=== PATIENT | female | born 1955 | race Caucasian/White ===

== ENCOUNTER 2019-10-18 09:37 | Emergency (ER) | payer MEDICARE ==
[2019-10-18] MEDS ORDERED: BABY ASPIRIN 81 MG CHEW PO ONE (09:53)
[2019-10-18] MEDS ORDERED: PROVENTIL 2.5 MG/3 ML NEB IH ONE ×2 (09:54→10:10)
[2019-10-18] MEDS ORDERED: solu-MEDROL 125 MG IV ONE (09:54)
[2019-10-18] MEDS ORDERED: solu-MEDROL 125 MG ONE (10:03)
[2019-10-18] MEDS ORDERED: BABY ASPIRIN 81 MG CHEW ONE (10:03)
--- NOTE | 2019-10-18 10:11 | ERPHSYRPT ---
- History of Present Illness Time Seen by Provider: 10/18/19 09:43 Source: patient Exam Limitations: no limitations Patient Subjective Stated Complaint: PT STATES SHE HAS BEEN SOB AND A COUGH SINCE , SHE WAS SEEN AND STARTED ON [place] ON 10/14/19 AND STATES SHE IS GETTING BETTER, NO FEVER Triage Nursing Assessment: PT ALERT, WALKED IN, RESP EASY, HAS COUGH, SKIN W/D/P , DIMINISHED BREATH SOUNDS,SHE HAS NEB TX LAST AT 0600, HAS CONGESTED SOUNDING COUGH Physician History: Cough, SOB, URI like symptoms x 2 weeks. Patient continues to smoke. No chest pain. She was given steroids and albuterol by PCP. Timing/Duration: week(s) Cough Quality/Degree: mild, dry cough Possible Cause: frequent episodes Modifying Factors: Improves With: albuterol inhaler, coughing Associated Symptoms: fever, chills, No chest pain/soreness International travel in last 2 weeks: No Allergies/Adverse Reactions: amoxicillin [From Augmentin] Adverse Reaction (Verified 10/18/19 09:42) clavulanic acid [From Augmentin] Adverse Reaction (Verified 10/18/19 09:42) doxycycline Adverse Reaction (Verified 10/18/19 09:42) Hx Influenza Vaccination/Date Given: Yes Hx Pneumococcal Vaccination/Date Given: Yes Immunizations Up to Date: Yes - Review of Systems Constitutional: No Fever, No Chills Eyes: No Symptoms Ears, Nose, & Throat: No Symptoms, Nose Congestion Respiratory: Cough, Wheezing, No Dyspnea Cardiac: No Chest Pain, No Edema, No Syncope Abdominal/Gastrointestinal: No Abdominal Pain, No Nausea, No Vomiting, No Diarrhea Genitourinary Symptoms: No Dysuria Musculoskeletal: No Back Pain, No Neck Pain Skin: No Rash Neurological: No Dizziness, No Focal Weakness, No Sensory Changes Psychological: No Symptoms Endocrine: No Symptoms All Other Systems: Reviewed and Negative - Past Medical History Pertinent Past Medical History: Yes Cardiac History: High Cholesterol, Hypertension Respiratory History: Bronchitis, COPD 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 - Past Surgical History Past Surgical History: Yes Gastrointestinal: Cholecystectomy Female Surgical History: Hysterectomy Other Surgical History: STENTS - Social History Smoking Status: Current some day smoker Exposure to second hand smoke: Yes Drug Use: none Patient Lives Alone: No - Female History Hx Last Menstrual Period: POST Hx Now: No - Nursing Vital Signs Nursing Vital Signs: Initial Vital Signs Respiratory Rate 20 01/11/20 09:42 O2 Sat by Pulse Oximetry 95 10/18/19 09:42 Pain Scale Pain Intensity 0 - Physical Exam General Appearance: no apparent distress, alert Eye Exam: PERRL/EOMI, eyes nml inspection Ears, Nose, Throat Exam: normal ENT inspection, TMs normal, pharynx normal, moist mucous membranes Neck Exam: normal inspection, non-tender, supple, full range of motion Respiratory Exam: normal breath sounds, wheezing (wheezing throughout), No lungs clear, No respiratory distress Cardiovascular Exam: regular rate/rhythm, normal heart sounds Gastrointestinal/Abdomen Exam: soft, No tenderness Back Exam: normal inspection, No CVA tenderness, No vertebral tenderness Extremity Exam: normal inspection, normal range of motion Neurologic Exam: alert, oriented x 3, cooperative, normal mood/affect, sensation nml, No motor deficits Skin Exam: normal color, warm, dry, No rash Lymphatic Exam: No adenopathy SpO2: 94 Ordered Tests: Active Orders 24 hr Category Date Time Status EKG-ER Only STAT Care 10/18/19 09:53 Active IV Insertion STAT Care 10/18/19 09:53 Active CHEST 2 VIEWS (PA AND LAT) Stat Exams 10/18/19 09:54 Taken CBC W DIFF Stat Lab 10/18/19 10:00 Completed CMP Stat Lab 10/18/19 10:00 Completed LIPASE Stat Lab 10/18/19 10:00 Completed NT PRO BNP Stat Lab 10/18/19 10:00 Completed TROPONIN Q3H Lab 10/18/19 10:00 Completed TROPONIN Q3H Lab 10/18/19 13:00 Ordered TROPONIN Q3H Lab 10/18/19 16:00 Ordered TROPONIN Q3H Lab 10/18/19 19:00 Ordered TROPONIN Q3H Lab 10/18/19 22:00 Ordered Peak Expiratory Flow Rate ONCE RT 10/18/19 10:16 Active Respiratory Therapy Assessment DAILY RT 10/18/19 10:16 Active Medication Summary Discontinued Medications Generic Name Dose Route Start Last Admin Trade Name Freq PRN Reason Stop Dose Admin Albuterol Sulfate 2.5 mg 10/18/19 09:54 10/18/19 10:14 Proventil 2.5 Mg/3 Ml Neb IH 10/18/19 09:55 2.5 mg STAT ONE Administration Albuterol Sulfate Confirm 10/18/19 10:10 Proventil 2.5 Mg/3 Ml Neb Administered 10/18/19 10:11 Dose 2.5 mg IH .STK-MED ONE Aspirin 324 mg 10/18/19 09:53 10/18/19 10:04 Baby Aspirin 81 Mg Chew PO 10/18/19 09:54 324 mg STAT ONE Administration Aspirin Confirm 10/18/19 10:03 Baby Aspirin 81 Mg Chew Administered 10/18/19 10:04 Dose 324 mg .ROUTE .STK-MED ONE Methylprednisolone Sodium Succinate 125 mg 10/18/19 09:54 10/18/19 10:04 Solu-Medrol 125 Mg IV 10/18/19 09:55 125 mg STAT ONE Administration Methylprednisolone Sodium Succinate Confirm 10/18/19 10:03 Solu-Medrol 125 Mg Administered 10/18/19 10:04 Dose 125 mg .ROUTE .STK-MED ONE Lab/Rad Data: Laboratory Result Diagrams 10/18/19 10:00 10/18/19 10:00 Laboratory Results 10/18/19 10/18/19 10/18/19 Range/Units 10:00 10:00 10:00 WBC (4.0-10.5) K/mm3 RBC (4.1-5.4) M/mm3 Hgb (12.0-16.0) gm/dl Hct (35-47) % MCV (78-100) fl MCH (26-32) pg MCHC (32-36) g/dl RDW (11.5-14.0) % Plt Count (150-450) K/mm3 MPV (7.5-11.0) fl Gran % (36.0-66.0) % Eos # (Auto) (0-0.5) Absolute Lymphs (auto) (1.0-4.6) Absolute Monos (auto) (0.0-1.3) Lymphocytes % (24.0-44.0) % Monocytes % (0.0-12.0) % Eosinophils % (0.00-5.0) % Basophils % (0.0-0.4) % Absolute Granulocytes (1.4-6.9) Basophils # (0-0.4) Sodium 138 (137-145) mmol/L Potassium 3.7 (3.5-5.1) mmol/L Chloride 105 (98-107) mmol/L Carbon Dioxide 27 (22-30) mmol/L Anion Gap 10.6 (5-15) MEQ/L BUN 12 (7-17) mg/dL Creatinine 0.57 (0.52-1.04) mg/dL Estimated GFR > 60.0 ML/MIN Glucose 120 H (74-106) mg/dL Calcium 9.6 (8.4-10.2) mg/dL Total Bilirubin 0.50 (0.2-1.3) mg/dL AST 37 H (14-36) U/L ALT 31 (0-35) U/L Alkaline Phosphatase 99 (38-126) U/L Troponin I < 0.012 (0.000-0.034) ng/mL NT-Pro-B Natriuret Pep 183 (0-900) pg/mL Serum Total Protein 7.7 (6.3-8.2) g/dL Albumin 4.1 (3.5-5.0) g/dL Lipase 35 (23-300) U/L Influenza Type A Ag NEGATIVE (NEGATIVE) Influenza Type B Ag NEGATIVE (NEGATIVE) RSV (PCR) NEGATIVE (Negative) Slides for Path Review 10/18/19 Range/Units 10:00 WBC 9.3 (4.0-10.5) K/mm3 RBC 4.00 L (4.1-5.4) M/mm3 Hgb 14.6 (12.0-16.0) gm/dl Hct 42.2 (35-47) % MCV 105.5 H (78-100) fl MCH 36.5 H (26-32) pg MCHC 34.6 (32-36) g/dl RDW 13.8 (11.5-14.0) % Plt Count 249 (150-450) K/mm3 MPV 9.3 (7.5-11.0) fl Gran % 91.4 H (36.0-66.0) % Eos # (Auto) 0.02 (0-0.5) Absolute Lymphs (auto) 0.43 L (1.0-4.6) Absolute Monos (auto) 0.34 (0.0-1.3) Lymphocytes % 4.6 L (24.0-44.0) % Monocytes % 3.7 (0.0-12.0) % Eosinophils % 0.2 (0.00-5.0) % Basophils % 0.1 (0.0-0.4) % Absolute Granulocytes 8.47 H (1.4-6.9) Basophils # 0.01 (0-0.4) Sodium (137-145) mmol/L Potassium (3.5-5.1) mmol/L Chloride (98-107) mmol/L Carbon Dioxide (22-30) mmol/L Anion Gap (5-15) MEQ/L BUN (7-17) mg/dL Creatinine (0.52-1.04) mg/dL Estimated GFR ML/MIN Glucose (74-106) mg/dL Calcium (8.4-10.2) mg/dL Total Bilirubin (0.2-1.3) mg/dL AST (14-36) U/L ALT (0-35) U/L Alkaline Phosphatase (38-126) U/L Troponin I (0.000-0.034) ng/mL NT-Pro-B Natriuret Pep (0-900) pg/mL Serum Total Protein (6.3-8.2) g/dL Albumin (3.5-5.0) g/dL Lipase (23-300) U/L Influenza Type A Ag (NEGATIVE) Influenza Type B Ag (NEGATIVE) RSV (PCR) (Negative) Slides for Path Review YES - Progress Progress: improved, re-examined Air Movement: good Progress Note: 10/18/19 10:10 - We'll obtain basic labs, fluids, EKG, troponin, chest x-ray - I feel comfortable with one time negative troponin given symptoms have improved and started greater then 6 hours ago. - EKG shows no ST changes - my read. See full read below. - O2 saturations consistently greater than 95%. - CXR shows no pneumonia, pneumothorax - my read - no other obvious lab abnormalities - breathing treatment, IV steroids. 10/18/19 11:12 Patient feeling improved. Flu and RSV negative. Patient will follow up with PCP , return here for new or changing symptoms. Counseled pt/family regarding: lab results, diagnosis, need for follow-up - Departure Departure Disposition: Home Clinical Impression: Bronchitis Condition: Stable Critical Care Time: No Referrals: YAAKOV MATRINEZ [ACTIVE STAFF] - Instructions: Exacerbation of COPD (DC) Additional Instructions: return for new or changing symptoms. Prescriptions: Benzonatate [Tessalon Perle] 200 mg PO TID #12 capsule
[2019-10-18 10:16] LABS: Absolute Neutrophil Ct (ANC) 8.47 (1.4-6.9); BASOPHIL % 0.1 % (0.0-0.4); Basophil (Absolute #) 0.01 (0-0.4); Eosinophil % 0.2 % (0.00-5.0); Eosinophil (Absolute #) 0.02 (0-0.5); Hematocrit 42.2 % (35-47); Hemoglobin 14.6 gm/dl (12.0-16.0); Lymphocyte (Absolute #) 0.43 (1.0-4.6); Lymphocytes % 4.6 % (24.0-44.0); Mean Cell Volume 105.5 fl (78-100); Mean Corpuscular Hemoglobin 36.5 pg (26-32); Mean Corpuscular Hgb Concent. 34.6 g/dl (32-36); Mean Platelet Volume 9.3 fl (7.5-11.0); Monocyte (Absolute #) 0.34 (0.0-1.3); Monocytes % 3.7 % (0.0-12.0); Neutrophil % 91.4 % (36.0-66.0); Platelet Count 249 K/mm3 (150-450); Red Cell Distribution Width 13.8 % (11.5-14.0); White Blood Count 9.3 K/mm3 (4.0-10.5)
[2019-10-18 10:37] LABS: ALBUMIN 4.1 g/dL (3.5-5.0); ALKALINE PHOSPHATASE 99 U/L (38-126); ANION GAP 10.6 MEQ/L (5-15); BLOOD UREA NITROGEN 12 mg/dL (7-17); CHLORIDE 105 mmol/L (98-107); Calcium 9.6 mg/dL (8.4-10.2); Carbon Dioxide 27 mmol/L (22-30); Creatinine 1 0.57 mg/dL (0.52-1.04); Glucose 120 mg/dL (74-106); LIPASE 35 U/L (23-300); NT PRO BNP 183 pg/mL (0-900); Potassium 3.7 mmol/L (3.5-5.1); SGOT/AST 37 U/L (14-36); SGPT/ALT 31 U/L (0-35); SODIUM 138 mmol/L (137-145); Total Protein 7.7 g/dL (6.3-8.2)
[2019-10-18 10:45] LABS: Slide Review 1 YES
[2019-10-18 11:07] LABS: INFLUENZA A NEGATIVE (NEGATIVE); INFLUENZA B NEGATIVE (NEGATIVE); RESPIRATORY SYNCTIAL VIRUS NEGATIVE (Negative)
[2019-10-18 11:19] VITALS: BP 149/75; PULSE 82; O2SAT 94
--- NOTE | 2019-10-18 19:13 | XRAY ---
Indication: Productive cough and short of breath. Comparison: None PA/lateral chest hyperinflated and clear. Heart is not enlarged. Bony thorax intact with mild degenerative changes, remote-appearing T12 compression fracture, and old right 4 rib fracture. Impression: Nonacute hyperinflated chest with chronic bony findings.
== END 2019-10-18 11:30 | disposition home or self-care (01) ==
LOC: ED 09:37
DX: J40 Bronchitis, not specified as acute or chronic (principal); I10 Essential (primary) hypertension; J44.9 Chronic obstructive pulmonary disease, unspecified
CPT/HCPCS: 36000; 36415; 71046; 80053; 83690; 83880; 84484; 85025; 87631; 93005; 94150; 94640; 96374; 99284; J2930; J7609; A9270-GY

== ENCOUNTER 2023-08-23 06:27 | Day surgery (SDC) | payer MEDICARE ==
[~2023-08-23 06:27] MED LIST: Ak-Dilate OPHTHALMIC*** 1.065 ML, Cyclogyl 1% OPHTH SOL 1.065 ML, GATIFLOXACIN 0.5% OPH... OP ONE; BETADINE 5% OPHTHALMIC 30 ML OP ONE; Lactated Ringers 1,000 ML IV SCH; NON-FORMULARY ITEM OP ONE; TETRACAINE 0.5% STERI-UNIT SOL OP ONE; cefUROXime sodium 0.005 GM in Sodium Chloride Flush 30 ML*** 0.5 ML IJ ONE
[2023-08-23] MEDS ORDERED: Lactated Ringers 1,000 ML IV ONE (06:33)
[2023-08-23 06:56] VITALS: RESP 18
[2023-08-23] MEDS ORDERED: Epinephrine Preservative Free 1 MG/ML IJ ONE (08:00)
[2023-08-23] MEDS ORDERED: DIPRIVAN 200 MG/20 ML IV ONE (08:15)
[2023-08-23] MEDS ORDERED: Versed 2 MG/2 ML Injection ONE (08:16)
[2023-08-23] MEDS ORDERED: SUBLIMAZE 100 MCG/2 ML ONE (08:16)
[2023-08-23 08:44] VITALS: TEMP 97
[2023-08-23 08:48] VITALS: O2SAT 93
[2023-08-23 08:51] VITALS: BP 125/57; PULSE 77
[2023-08-23] MEDS ORDERED: Zofran 4 MG/2 ML VIAL IV PRN (09:00)
[2023-08-23] MEDS ORDERED: ACETAZOLAMIDE 250 MG TABLET PO ONE (09:00)
== END 2023-08-23 09:02 | disposition home or self-care (01) ==
LOC: SDC 06:27
PROVIDERS: ATTEND Ophthalmology
DX: H25.812 Combined forms of age-related cataract, left eye (principal)
CPT/HCPCS: C1780; J0171; J2250; J2704; J3010; A9270-GY

== ENCOUNTER 2023-11-26 09:46 | Emergency (ER) | payer MEDICARE ==
--- NOTE | 2023-11-26 09:59 | ERPHSYRPT ---
- History of Present Illness Time Seen by Provider: 11/26/23 09:58 Source: patient Exam Limitations: no limitations Physician History: This is a 68-year-old white female patient who has a history of hyperlipidemia, asthma/COPD, hypertension, osteoporosis and is on Plavix and presents with 6-day history of worsening cough, chest congestion, chest heaviness and shortness of breath. Patient called her primary care provider, Dr. Sanchez, on Sunday prior to this evaluation and patient received tapering steroid prescription. Symptoms seem to improve for a few days but in the last 3 days patient's above-stated symptoms have worsened. Patient continues to smoke cigarettes. Patient wears 2 L of oxygen via nasal cannula at nighttime only. She denies fever. She denies abdominal pain. She denies nausea vomiting and diarrhea symptoms. Timing/Duration: day(s) (6), worse (Symptoms worsening last 2 to 3 days) Cough Quality/Degree: mild (To moderate), dry cough Possible Cause: occasional episodes Modifying Factors: Improves With: coughing Associated Symptoms: chest pain/soreness (Chest heaviness), cough, shortness of breath (Mild), wheezing (Right side wheezing) Allergies/Adverse Reactions: amoxicillin [From Augmentin] Adverse Reaction (Verified 11/26/23 09:53) clavulanic acid [From Augmentin] Adverse Reaction (Verified 11/26/23 09:53) doxycycline Adverse Reaction (Verified 11/26/23 09:53) Home Medications: Albuterol Sulfate [Proair Respiclick] 2 puff IH UD 08/14/23 [History] Amlodipine Besylate 5 mg [Norvasc 5 mg] 5 mg PO DAILY 08/14/23 [History] Clopidogrel Bisulfate [Clopidogrel] 75 mg PO DAILY 08/14/23 [History] Denosumab 60 mg [Prolia 60 mg Injection] 1 dose IV UD 08/14/23 [History] Escitalopram Oxalate [Lexapro] 10 mg PO DAILY 08/14/23 [History] Formoterol Fumarate 20 mg IH BID 08/14/23 [History] Losartan/Hydrochlorothiazide [Losartan-Hctz 100-25 mg Tab] 1 tab PO DAILY 08/14/23 [History] Montelukast Sodium 10 mg [Singulair 10 MG] 10 mg PO DAILY 08/14/23 [History] Revefenacin [Yupelri] 175 mcg IH DAILY 08/14/23 [History] Rosuvastatin Calcium 20 mg PO DAILY 08/14/23 [History] Hx Influenza Vaccination/Date Given: Yes Hx Pneumococcal Vaccination/Date Given: Yes Travel Risk - International Travel Have you traveled outside of the country in past 3 weeks: No - Coronavirus Screening Are you exhibiting any of the following symptoms?: Yes Symptoms: Cough: New Onset, Shortness of Breath Close contact with a COVID-19 positive Pt in past 14-21 Days: No - Review of Systems Constitutional: No Symptoms Eyes: No Symptoms Ears, Nose, & Throat: No Symptoms Respiratory: Cough, Dyspnea on Exertion (MILLER), Wheezing Cardiac: Chest Pain (Described as chest heaviness) Abdominal/Gastrointestinal: No Symptoms Genitourinary Symptoms: No Symptoms Musculoskeletal: No Symptoms Skin: No Symptoms Neurological: No Symptoms Psychological: No Symptoms Endocrine: No Symptoms Hematologic/Lymphatic: No Symptoms Immunological/Allergic: No Symptoms All Other Systems: Reviewed and Negative - Past Medical History Pertinent Past Medical History: Yes Neurological History: No Pertinent History ENT History: Cataracts Cardiac History: High Cholesterol, Hypertension Respiratory History: Bronchitis, COPD Endocrine Medical History: No Pertinent History Musculoskeletal History: No Pertinent History GI Medical History: No Pertinent History History: No Pertinent History Psycho-Social History: No Pertinent History Female Reproductive Disorders: No Pertinent History 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 - Past Surgical History Past Surgical History: Yes Neuro Surgical History: No Pertinent History Cardiac: No Pertinent History Respiratory: No Pertinent History Gastrointestinal: Cholecystectomy Female Surgical History: Hysterectomy Other Surgical History: STENTS,femfem bypass colonoscopy - Social History Smoking Status: Current every day smoker How long have you smoked: 30 years Exposure to second hand smoke: No Drug Use: none Patient Lives Alone: No - Nursing Vital Signs Nursing Vital Signs: Initial Vital Signs Temperature 96.9 F 11/26/23 09:57 Pulse Rate 69 11/26/23 09:57 Respiratory Rate 18 11/26/23 09:57 Blood Pressure 137/60 11/26/23 09:57 O2 Sat by Pulse Oximetry 93 L 11/26/23 09:57 Pain Scale Pain Intensity 0 - Physical Exam General Appearance: no apparent distress, alert, anxiety Eye Exam: PERRL/EOMI, eyes nml inspection Ears, Nose, Throat Exam: normal ENT inspection, moist mucous membranes Neck Exam: normal inspection, non-tender, supple, full range of motion Respiratory Exam: chest tenderness (Described as a mild chest heaviness), airway intact, wheezing (Mild expiratory wheezing right lung field), No respiratory distress Cardiovascular Exam: regular rate/rhythm, normal heart sounds, normal peripheral pulses Gastrointestinal/Abdomen Exam: soft, normal bowel sounds, No tenderness Pelvic Exam: not done Rectal Exam: not done Extremity Exam: normal inspection, normal range of motion, pelvis stable Neurologic Exam: alert, oriented x 3, cooperative, box spring frame builder II-XII nml as tested, normal mood/affect, nml cerebellar function, nml station & gait, sensation nml Skin Exam: normal color, warm, dry Lymphatic Exam: No adenopathy SpO2 Interpretation: normal O2 Delivery: Room Air - Course Nursing assessment & vital signs reviewed: Yes EKG Interpreted by Me: RATE (58), Sinus Rhythm, NORMAL AXIS, NORMAL INTERVALS, NORMAL QRS, NORMAL ST-T, Other (No acute ischemic changes on today's twelve-lead EKG.) Ordered Tests: Active Orders 24 hr Category Date Time Status Inspector Timers STAT Care 11/26/23 10:17 Active EKG-ER Only STAT Care 11/26/23 10:15 Active IV Insertion STAT Care 11/26/23 10:15 Active CHEST 1 VIEW (PORTABLE) Stat Exams 11/26/23 10:16 Completed BLOOD CULTURE Stat Lab 11/26/23 12:30 Received CBC W DIFF Stat Lab 11/26/23 Completed CMP Stat Lab 11/26/23 Completed CULTURE,SPUTUM Stat Lab 11/26/23 Received D-DIMER QUANTITATIVE Stat Lab 11/26/23 Completed Lactic Acid Stat Lab 11/26/23 10:20 Completed Lactic Acid Stat Lab 11/26/23 12:30 Received NT PRO BNPII Stat Lab 11/26/23 Completed PROTIME WITH INR Stat Lab 11/26/23 Completed TROPONIN Q4H Lab 11/26/23 Completed TROPONIN Q4H Lab 11/26/23 14:30 Ordered TROPONIN Q4H Lab 11/26/23 18:30 Ordered Respiratory Therapy Assessment DAILY RT 11/26/23 10:34 Active Medication Summary Generic Name Dose Route Start Last Admin Trade Name Freq PRN Reason Stop Dose Admin Sodium Chloride 500 mls @ 500 mls/hr 11/26/23 13:12 11/26/23 13:21 Sodium Chloride 0.9% 500 Ml IV 11/26/23 14:11 500 mls/hr .Q1H ONE Administration Discontinued Medications Generic Name Dose Route Start Last Admin Trade Name Cherelle PRN Reason Stop Dose Admin Albuterol/Ipratropium 3 ml 11/26/23 10:15 11/26/23 10:29 Ipratropium/Albuterol Sulfate 3 Ml Ampul.Neb IH 11/26/23 10:16 3 ml STAT ONE Administration Albuterol/Ipratropium Confirm 11/26/23 10:21 Ipratropium/Albuterol Sulfate 3 Ml Ampul.Neb Administered 11/26/23 10:22 Dose 3 ml IH .STK-MED ONE Methylprednisolone Sodium 0 mg 11/26/23 10:15 11/26/23 10:40 Succinate 125 mg/ Sterile IV 11/26/23 10:16 125 mg Water 2 ml STAT ONE Administration Sodium Chloride Confirm 11/26/23 13:17 Sodium Chloride 0.9% 500 Ml Administered 11/26/23 13:18 Dose 500 mls @ ud IV .STK-MED ONE Methylprednisolone Sodium Succinate Confirm 11/26/23 10:32 Methylprednis Sod Succ 125 Mg/2 Ml Vial Administered 11/26/23 10:33 Dose 125 mg .ROUTE .STK-MED ONE Potassium Chloride 20 meq 11/26/23 13:11 11/26/23 13:19 Potassium Chloride Tab 10 Meq Tab PO 11/26/23 13:12 20 meq STAT ONE Administration Potassium Chloride Confirm 11/26/23 13:17 Potassium Chloride Tab 10 Meq Tab Administered 11/26/23 13:18 Dose 20 meq .ROUTE .STK-MED ONE Sterile Water Confirm 11/26/23 10:32 Water For Injection,Sterile 10 Ml Vial Administered 11/26/23 10:33 Dose 10 ml IJ .STK-MED ONE Lab/Rad Data: Laboratory Result Diagrams 11/26/23 Unknown 11/26/23 Unknown Laboratory Results 11/26/23 11/26/23 11/26/23 Range/Units Unknown Unknown Unknown WBC (4.0-10.5) x10^3/uL RBC (4.1-5.4) x10^6/uL Hgb (12.0-16.0) g/dL Hct (35-47) % MCV (78-100) fL MCH (26-32) pg MCHC (32-36) g/dL RDW (11.5-14.0) % Plt Count (150-450) x10^3/uL MPV (7.5-11.0) fL Gran % (36.0-66.0) % Immature Gran % (Auto) (0.00-0.4) % Nucleat RBC Rel Count (0.00-0.1) % Eos # (Auto) (0-0.5) x10^3/uL Immature Gran # (Auto) (0.00-0.03) x10^3u/L Absolute Lymphs (auto) (1.0-4.6) x10^3/uL Absolute Monos (auto) (0.0-1.3) x10^3/uL Absolute Nucleated RBC (0.00-0.01) x10^3u/L Lymphocytes % (24.0-44.0) % Monocytes % (0.0-12.0) % Eosinophils % (0.00-5.0) % Basophils % (0.0-0.4) % Absolute Granulocytes (1.4-6.9) x10^3/uL Basophils # (0-0.4) x10^3/uL PT 10.3 (9.4-12.5) SECONDS INR 0.94 (0.8-3.0) D-Dimer 0.57 H (0.0-0.50) mg/L Sodium 137 (137-145) mmol/L Potassium 2.9 L* (3.5-5.1) mmol/L Chloride 94 L (98-107) mmol/L Carbon Dioxide 37 H (22-30) mmol/L Anion Gap 9.0 (5-15) MEQ/L BUN 13 (7-17) mg/dL Creatinine 0.69 (0.52-1.04) mg/dL Estimated GFR 93.9 ML/MIN Glucose 115 H (74-106) mg/dL Lactic Acid (0.4-2.0) Calcium 9.8 (8.4-10.2) mg/dL Total Bilirubin 1.00 (0.2-1.3) mg/dL AST 26 (14-36) U/L ALT 25 (0-35) U/L Alkaline Phosphatase 77 (38-126) U/L Troponin I < 0.012 (0.000-0.034) ng/mL NT-Pro-B Natriuret Pep 90.9 (<300) pg/mL Serum Total Protein 7.7 (6.3-8.2) g/dL Albumin 4.3 (3.5-5.0) g/dL Influenza Type A Ag (NEGATIVE) Influenza Type B Ag (NEGATIVE) RSV (PCR) (NEGATIVE) SARS-CoV-2 (PCR) (NEGATIVE) 11/26/23 11/26/23 11/26/23 Range/Units Unknown 11:25 10:20 WBC 9.6 (4.0-10.5) x10^3/uL RBC 3.88 L (4.1-5.4) x10^6/uL Hgb 13.9 (12.0-16.0) g/dL Hct 41.3 (35-47) % MCV 106.4 H (78-100) fL MCH 35.8 H (26-32) pg MCHC 33.7 (32-36) g/dL RDW 14.3 H (11.5-14.0) % Plt Count 289 (150-450) x10^3/uL MPV 9.7 (7.5-11.0) fL Gran % 43.8 (36.0-66.0) % Immature Gran % (Auto) 0.3 (0.00-0.4) % Nucleat RBC Rel Count 0.0 (0.00-0.1) % Eos # (Auto) 0.12 (0-0.5) x10^3/uL Immature Gran # (Auto) 0.03 (0.00-0.03) x10^3u/L Absolute Lymphs (auto) 4.42 (1.0-4.6) x10^3/uL Absolute Monos (auto) 0.78 (0.0-1.3) x10^3/uL Absolute Nucleated RBC 0.00 (0.00-0.01) x10^3u/L Lymphocytes % 46.1 H (24.0-44.0) % Monocytes % 8.1 (0.0-12.0) % Eosinophils % 1.3 (0.00-5.0) % Basophils % 0.4 (0.0-0.4) % Absolute Granulocytes 4.20 (1.4-6.9) x10^3/uL Basophils # 0.04 (0-0.4) x10^3/uL PT (9.4-12.5) SECONDS INR (0.8-3.0) D-Dimer (0.0-0.50) mg/L Sodium (137-145) mmol/L Potassium (3.5-5.1) mmol/L Chloride (98-107) mmol/L Carbon Dioxide (22-30) mmol/L Anion Gap (5-15) MEQ/L BUN (7-17) mg/dL Creatinine (0.52-1.04) mg/dL Estimated GFR ML/MIN Glucose (74-106) mg/dL Lactic Acid 2.2 H (0.4-2.0) Calcium (8.4-10.2) mg/dL Total Bilirubin (0.2-1.3) mg/dL AST (14-36) U/L ALT (0-35) U/L Alkaline Phosphatase (38-126) U/L Troponin I (0.000-0.034) ng/mL NT-Pro-B Natriuret Pep (<300) pg/mL Serum Total Protein (6.3-8.2) g/dL Albumin (3.5-5.0) g/dL Influenza Type A Ag NEGATIVE (NEGATIVE) Influenza Type B Ag NEGATIVE (NEGATIVE) RSV (PCR) NEGATIVE (NEGATIVE) SARS-CoV-2 (PCR) NEGATIVE (NEGATIVE) - Progress Progress: improved, re-examined Air Movement: good Progress Note: 11/26/23 10:30 This patient's medical issue is 1 of moderate complexity. The level of complexity in the workup performed is based on review of the patient's past medical history, review the patient's medication list, review of the patient's drug allergy list, history of present illness and physical findings on examination. The workup in this patient includes placement of intravenous line, infusion of 125 mg intravenous Solu-Medrol, DuoNeb treatment, evaluation by respiratory therapy, twelve-lead EKG, chest x-ray, CBC, CMP, BNP, troponin level, D-dimer level. Will also perform viral studies in this patient. 11/26/23 11:00 Chest x-ray was interpreted by the radiologist and I reviewed the interpr etation. Interpretation states no new or acute findings. The lung garza are hyperinflated and clear. 11/26/23 13:37 I interpreted the patient's laboratory data results. The only acute, urgent medical finding is potassium 2.9. We will provide the patient with 20 mEq of oral potassium here in the emergency department and send a prescription home for an additional 2 to 3 days prescription of potassium. We will also send the patient home with a prescription for Levaquin. Will give her the first oral dose of Levaquin 500 milligrams orally now. 11/26/23 13:39 Given the fact this patient has persistent symptoms, I will additionally remotely send prednisone prescription to her pharmacy. My clinical impression in this patient is hypokalemia and upper respiratory infection as well as COPD exacerbation. Blood Culture(s) Obtained: Yes Counseled pt/family regarding: lab results, diagnosis, need for follow-up, rad results Medical Desision Making - Diagnostic Testing Diagnostic test were ordered, analyzed, and reviewed by me: Yes Radiological Interpretation: Reviewed by me, Teleradiologist Report - Risk of complications The pt has a mod risk of morbidity or mortality based on: Need for prescription drug management - Departure Departure Disposition: Home Clinical Impression: Hypokalemia, Upper respiratory infection, COPD exacerbation Condition: Stable Critical Care Time: No Referrals: Amarilis SANCHEZ [Primary Care Provider] - Follow up/PCP as directed Instructions: Chronic Obstructive Pulmonary Disease Additional Instructions: Take your prescriptions as prescribed. Stop smoking cigarettes. Call your primary care provider today, 11/26/2023, to make arrangements for follow-up appointment for further evaluation management. Prescriptions: Prednisone 10 mg [Deltasone 10 mg] 10 mg PO TID #12 tablet Potassium Chloride Tab* [Klor Con] 10 meq PO BID 3 Days #6 tab Levofloxacin [Levaquin 500 MG Tablet] 500 mg PO DAILY #7 tablet
[2023-11-26] MEDS ORDERED: DUONEB 0.5-3 MG/3 ml Neb IH ONE (10:21)
[2023-11-26 10:29] VITALS: TEMP 96.9
[2023-11-26] MEDS: DUONEB 0.5-3 MG/3 ml Neb IH ONE (10:29)
[2023-11-26] MEDS ORDERED: solu-MEDROL ONE (10:32)
[2023-11-26] MEDS ORDERED: Sterile H2O 10 ml IJ ONE (10:32)
--- NOTE | 2023-11-26 10:35 | XRAY ---
Indication: Cough. Short of breath. Comparison: October 18, 2019 Portable chest remains hyperinflated and clear. Heart not enlarged. Bony thorax intact again with osteopenia and mild degenerative changes. No new/acute findings.
[2023-11-26] MEDS: solu-MEDROL 125 MG, Sterile H2O 10 ml 2 ML IV ONE (10:40)
[2023-11-26 11:10] LABS: BASOPHIL % 0.4 % (0.0-0.4); Basophil (Absolute #) 0.04 x10^3/uL (0-0.4); Eosinophil % 1.3 % (0.00-5.0); Eosinophil (Absolute #) 0.12 x10^3/uL (0-0.5); Hematocrit 41.3 % (35-47); Hemoglobin 13.9 g/dL (12.0-16.0); IMMATURE GRAN # 0.03 x10^3u/L (0.00-0.03); IMMATURE GRAN % 0.3 % (0.00-0.4); Lymphocyte (Absolute #) 4.42 x10^3/uL (1.0-4.6); Lymphocytes % 46.1 % (24.0-44.0); Mean Cell Volume 106.4 fL (78-100); Mean Corpuscular Hemoglobin 35.8 pg (26-32); Mean Corpuscular Hgb Concent. 33.7 g/dL (32-36); Mean Platelet Volume 9.7 fL (7.5-11.0); Monocyte (Absolute #) 0.78 x10^3/uL (0.0-1.3); Monocytes % 8.1 % (0.0-12.0); Neutrophil % 43.8 % (36.0-66.0); Platelet Count 289 x10^3/uL (150-450); Red Blood Count 3.88 x10^6/uL (4.1-5.4); Red Cell Distribution Width 14.3 % (11.5-14.0); White Blood Count 9.6 x10^3/uL (4.0-10.5)
[2023-11-26 12:05] LABS: INFLUENZA A NEGATIVE (NEGATIVE); INFLUENZA B NEGATIVE (NEGATIVE); RESPIRATORY SYNCTIAL VIRUS NEGATIVE (NEGATIVE); SARS-CoV-2 Xpert Express NEGATIVE (NEGATIVE)
[2023-11-26 13:01] LABS: ALBUMIN 4.3 g/dL (3.5-5.0); Calcium 9.8 mg/dL (8.4-10.2); Creatinine 1 0.69 mg/dL (0.52-1.04); EST GLOMERULAR FILTRATION RATE 93.9 ML/MIN; Total Protein 7.7 g/dL (6.3-8.2)
[2023-11-26 13:05] LABS: Potassium 2.9 mmol/L (3.5-5.1)
[2023-11-26 13:09] LABS: D-DIMER QUANTITATIVE 0.57 mg/L (0.0-0.50); INR 0.94 (0.8-3.0); PROTIME 10.3 SECONDS (9.4-12.5)
[2023-11-26 13:17] LABS: NT PRO BNPII 90.9 pg/mL (<300); TROPONIN < 0.012 ng/mL (0.000-0.034)
[2023-11-26] MEDS ORDERED: Klor Con ONE (13:17)
[2023-11-26] MEDS ORDERED: Sodium Chloride 0.9% 500 ML 500 ML IV ONE (13:17)
[2023-11-26] MEDS: Klor Con PO ONE (13:19)
[2023-11-26] MEDS: Sodium Chloride 0.9% 500 ML 500 ML IV ONE (13:21)
[2023-11-26 13:28] VITALS: BP 128/59; PULSE 59; RESP 16; O2SAT 97
[2023-11-26] MEDS ORDERED: Levofloxacin 500 MG Tablet ONE (13:50)
[2023-11-26] MEDS: Levofloxacin 500 MG Tablet PO ONE (13:52)
== END 2023-11-26 14:14 | disposition home or self-care (01) ==
LOC: ED 09:46
DX: E87.6 Hypokalemia (principal); J06.9 Acute upper respiratory infection, unspecified; J44.1 Chronic obstructive pulmonary disease with (acute) exacerbation; R05.1 Acute cough; R06.02 Shortness of breath; E78.5 Hyperlipidemia, unspecified; I10 Essential (primary) hypertension; Z79.02 Long term (current) use of antithrombotics/antiplatelets; Z79.52 Long term (current) use of systemic steroids; Z79.899 Other long term (current) drug therapy; Z72.0 Tobacco use
CPT/HCPCS: 0241U; 36000; 36415; 71045; 80053; 83605; 83880; 84484; 85025; 85379; 85610; 87040; 87070; 93005; 93041; 94640; 96374; 99284; J2930; A9270-GY